=== PATIENT | female | born 1965 | race Caucasian/White ===

== ENCOUNTER 2021-03-10 01:32 | Inpatient (IN) | payer MEDICAID, OTHER ==
[~2021-03-10] VITALS: Ht 162.6 cm; Wt 139.6 kg
[2021-03-10 03:21] LABS: Basophils # (auto) 0 10 ^3/uL (0-0.2); Basophils % (auto) 0.3 % (0.0-2.0); Eosinophils # (auto) 0 10 ^3/uL (0-0.8); Eosinophils % (auto) 0.1 % (0.0-7.0); Hematocrit 40.1 % (36.0-46.0); Hemoglobin 13.2 g/dL (12.2-16.2); Lymphocytes # (auto) 0.6 10 ^3/uL (0.4-5.4); Lymphocytes % (auto) 8.3 % (10.0-50.0); Mean Corpuscular Hemoglobin 26.9 pg (28.0-32.0); Mean Corpuscular Volume 81.5 fL (80.0-100.0); Monocytes # (auto) 0.5 10 ^3/uL (0-1.3); Monocytes % (auto) 6.8 % (0.0-12.0); Neutrophils % (auto) 84.5 % (37.0-80.0); Nucleated Red Blood Cells % 0.1 %; Red Blood Cells 4.92 10^6/uL (4.0-5.20); Red Cell Distribution Width 15.2 % (11.8-14.3); White Blood Cell 7.1 10^3/uL (4.4-10.8)
[2021-03-10 03:39] LABS: Alanine Aminotransferase 44 U/L (13-56); Albumin 2.4 g/dL (3.4-5.0); Anion Gap 10 (5-15); Aspartate Aminotransferase 43 U/L (15-37); BUN/Creatinine Ratio 11.9; Blood Urea Nitrogen 8 mg/dL (7-18); Calcium 8.3 mg/dL (8.5-10.1); Carbon Dioxide 25 mmol/L (21-32); Chloride 99 mmol/L (98-107); GFR African American 118 mL/min; GFR Non-African American 98 mL/min; Glucose 107 mg/dL (74-106); Potassium 3.3 mmol/L (3.5-5.1); Sodium 134 mmol/L (136-145)
[2021-03-10 03:46] LABS: Alkaline Phosphatase 142 U/L (45-117); Bilirubin, Total 1.1 mg/dL (0.2-1.0); Total Protein 7.6 g/dL (6.4-8.2)
[2021-03-10 04:14] LABS: INR 1.16 (0.9-1.15); Partial Thromboplastin Time 30.2 sec (23.6-33.0)
[2021-03-10] MEDS ORDERED: ACETAMINOPHEN 500 MG TAB PO ONE (08:00)
[2021-03-10 09:40] LABS: Urine Amorphous Crystal FEW /hpf (None Seen); Urine Bacteria NONE SEEN /hpf (None Seen); Urine Blood Negative /uL (Negative); Urine Mucus FEW (None Seen); Urine Specific Gravity 1.034 (1.001-1.035); Urine WBC 5 /hpf (0 - 5)
[2021-03-10] MEDS ORDERED: MORPHINE SULFATE INJECTION 2 MG/ML SYRG IV PRN (10:45)
[2021-03-10] MEDS ORDERED: DexAMETHasone SOD PHOS 10MG/1ML VIAL INJ IV ONE (10:45)
[2021-03-10] MEDS ORDERED: NITROGLYCERIN 0.4 MG SL TAB SL PRN (10:45)
[2021-03-10] MEDS ORDERED: cefTRIAXone 1GM/50ML D5W 50 ML IV ONE (10:45)
[2021-03-10] MEDS ORDERED: CHOLECALCIFEROL (VITD3) 2,000 UNIT CAP/TAB PO ONE (10:45)
[2021-03-10] MEDS ORDERED: AZITHROMYCIN 500MG/ 250ML 250 ML IV ONE (10:45)
[2021-03-10] MEDS ORDERED: ASCORBIC ACID 500 MG TAB PO ONE (10:45)
[2021-03-10] MEDS ORDERED: ZINC SULFATE 220mg CAP or TAB PO ONE (10:45)
[2021-03-10] MEDS ORDERED: REMDESIVIR PER PHARMACY 0 ML IV SCH (11:00)
[2021-03-10] MEDS ORDERED: diphenhdrAMINE HCL 50 MG/1 ML VL IV PRN (11:00)
[2021-03-10] MEDS ORDERED: LACTULOSE 20Gm/30ML SOLN PO PRN (11:15)
[2021-03-10] MEDS ORDERED: POTASSIUM EFFERVESENT TAB 25 MEQ PO ONE (11:15)
[2021-03-10] MEDS ORDERED: DEXTROSE (50%) 50ML SYRG IV PRN (11:15)
[2021-03-10] MEDS: ACCU-CHEK COMFORT CURVE STRIP VI SCH ×3 (11:48→22:00)
[2021-03-10] MEDS ORDERED: REMDESIVIR 200 MG in NS 210ml LOADING DOSE ADULT IV ONE (15:00)
[2021-03-10 18:17] VITALS: BP 119/74
[2021-03-10 18:32] VITALS: BP 113/70
[2021-03-10] MEDS: ENOXAPARIN SOD 40 MG/0.4 ML SYRINGE SC SCH (21:59)
[2021-03-10] MEDS: FLORASTOR (S. BOULARDII) 250 MG CAP PO SCH (22:00)
[2021-03-10] MEDS: FAMOTIDINE 20 MG TAB PO SCH (22:00)
[2021-03-10] MEDS: ALBUTEROL SULF HFA 90MCG INH 200DOSE IN PRN (22:27)
[2021-03-10] MEDS: BUDESONIDE (INHALATION) 180 MCG IH IN SCH (22:27)
[2021-03-11 06:41] LABS: Basophils # (auto) 0 10 ^3/uL (0-0.2); Basophils % (auto) 0.1 % (0.0-2.0); Eosinophils # (auto) 0 10 ^3/uL (0-0.8); Hematocrit 35.2 % (36.0-46.0); Hemoglobin 11.9 g/dL (12.2-16.2); Lymphocytes # (auto) 0.5 10 ^3/uL (0.4-5.4); Lymphocytes % (auto) 6.7 % (10.0-50.0); Mean Corpuscular Hemoglobin 27.6 pg (28.0-32.0); Mean Corpuscular Hgb Conc. 33.8 g/dL (32.0-36.0); Mean Corpuscular Volume 81.8 fL (80.0-100.0); Monocytes # (auto) 0.4 10 ^3/uL (0-1.3); Monocytes % (auto) 5.1 % (0.0-12.0); Neutrophils # (auto) 6.9 10 ^3/uL (1.6-8.6); Neutrophils % (auto) 88.1 % (37.0-80.0); Nucleated Red Blood Cells % 0.1 %; Red Cell Distribution Width 14.8 % (11.8-14.3); White Blood Cell 7.9 10^3/uL (4.4-10.8)
[2021-03-11] MEDS: ACCU-CHEK COMFORT CURVE STRIP VI SCH ×4 (06:48→23:04)
[2021-03-11 07:05] LABS: Potassium 4.1 mmol/L (3.5-5.1)
[2021-03-11 07:12] LABS: Albumin 2.3 g/dL (3.4-5.0); BUN/Creatinine Ratio 18.6; Calcium 8.9 mg/dL (8.5-10.1)
[2021-03-11 07:17] LABS: Bilirubin, Total 0.9 mg/dL (0.2-1.0); Total Protein 7.6 g/dL (6.4-8.2)
[2021-03-11] MEDS: BUDESONIDE (INHALATION) 180 MCG IH IN SCH ×2 (07:35→18:35)
[2021-03-11] MEDS: ALBUTEROL SULF HFA 90MCG INH 200DOSE IN PRN ×2 (07:35→18:47)
[2021-03-11] MEDS: cefTRIAXone 1GM/50ML D5W 50 ML IV SCH (10:48)
[2021-03-11] MEDS: DexAMETHasone SOD PHOS 10MG/1ML VIAL INJ IV SCH (10:48)
[2021-03-11] MEDS: FAMOTIDINE 20 MG TAB PO SCH ×2 (10:49→23:04)
[2021-03-11] MEDS: FLORASTOR (S. BOULARDII) 250 MG CAP PO SCH ×2 (10:49→23:04)
[2021-03-11] MEDS: CHOLECALCIFEROL (VITD3) 2,000 UNIT CAP/TAB PO SCH (10:49)
[2021-03-11] MEDS: ASCORBIC ACID 1,000 MG TAB PO SCH (10:49)
[2021-03-11] MEDS: ZINC SULFATE 220mg CAP or TAB PO SCH (10:49)
[2021-03-11] MEDS: IVERMECTIN 3 MG TAB PO SCH (10:49)
[2021-03-11] MEDS: ENOXAPARIN SOD 40 MG/0.4 ML SYRINGE SC SCH ×2 (10:50→23:04)
[2021-03-11] MEDS ORDERED: guaiFENesin-DM 100/10mg/5ml SYR PO PRN (11:15)
[2021-03-11] MEDS: AZITHROMYCIN 500MG/ 250ML 250 ML IV SCH (11:43)
[2021-03-11] MEDS: REMDESIVIR 100mg 100 MG in SODIUM CHL 0.9% 230 ML IV SCH (17:30)
[2021-03-11 23:00] VITALS: BP 109/66
[2021-03-12] MEDS ORDERED: ALBUAER3 IN (00:41)
[2021-03-12] MEDS ORDERED: ALBU0.084 NEB (00:41)
[2021-03-12 05:58] VITALS: BP 122/74
[2021-03-12] MEDS: ACCU-CHEK COMFORT CURVE STRIP VI SCH ×4 (06:00→22:31)
[2021-03-12 07:02] LABS: Albumin 2.2 g/dL (3.4-5.0); BUN/Creatinine Ratio 27.6; Calcium 8.9 mg/dL (8.5-10.1); Potassium 3.8 mmol/L (3.5-5.1)
[2021-03-12] MEDS: ALBUTEROL SULF HFA 90MCG INH 200DOSE IN PRN ×2 (07:15→21:37)
[2021-03-12] MEDS: BUDESONIDE (INHALATION) 180 MCG IH IN SCH ×2 (07:15→21:37)
[2021-03-12 07:20] LABS: Bilirubin, Total 0.4 mg/dL (0.2-1.0); Total Protein 7.3 g/dL (6.4-8.2)
[2021-03-12 09:00] VITALS: BP 99/64
[2021-03-12] MEDS: DexAMETHasone SOD PHOS 10MG/1ML VIAL INJ IV SCH (09:00)
[2021-03-12] MEDS: cefTRIAXone 1GM/50ML D5W 50 ML IV SCH (09:00)
[2021-03-12] MEDS: ZINC SULFATE 220mg CAP or TAB PO SCH (09:01)
[2021-03-12] MEDS: FLORASTOR (S. BOULARDII) 250 MG CAP PO SCH ×2 (09:01→22:31)
[2021-03-12] MEDS: IVERMECTIN 3 MG TAB PO SCH (09:02)
[2021-03-12] MEDS: CHOLECALCIFEROL (VITD3) 2,000 UNIT CAP/TAB PO SCH (09:02)
[2021-03-12] MEDS: ASCORBIC ACID 1,000 MG TAB PO SCH (09:02)
[2021-03-12] MEDS: FAMOTIDINE 20 MG TAB PO SCH ×2 (09:02→22:31)
[2021-03-12] MEDS: ENOXAPARIN SOD 40 MG/0.4 ML SYRINGE SC SCH (10:00)
[2021-03-12] MEDS: AZITHROMYCIN 500MG/ 250ML 250 ML IV SCH (11:24)
[2021-03-12 13:00] VITALS: BP 108/67
[2021-03-12] MEDS: REMDESIVIR 100mg 100 MG in SODIUM CHL 0.9% 230 ML IV SCH (15:44)
[2021-03-12] MEDS ORDERED: ENOXAPARIN SOD 150 MG/1 ML SYRINGE SC ONE (16:00)
[2021-03-12] MEDS ORDERED: ENOXAPARIN SOD 100 MG/1 ML SYRINGE SC ONE (16:00)
[2021-03-12 17:00] VITALS: BP 97/61
[2021-03-12 22:00] VITALS: BP 106/66
[2021-03-13 05:13] VITALS: BP 137/72
[2021-03-13 06:43] LABS: Albumin 2.1 g/dL (3.4-5.0); Potassium 4.1 mmol/L (3.5-5.1)
[2021-03-13 06:47] LABS: Bilirubin, Total 0.5 mg/dL (0.2-1.0); Calcium 8.9 mg/dL (8.5-10.1); Total Protein 6.8 g/dL (6.4-8.2)
[2021-03-13] MEDS: ACCU-CHEK COMFORT CURVE STRIP VI SCH ×4 (06:57→21:09)
[2021-03-13] MEDS: ALBUTEROL SULF HFA 90MCG INH 200DOSE IN PRN ×2 (07:04→22:08)
[2021-03-13] MEDS: BUDESONIDE (INHALATION) 180 MCG IH IN SCH ×2 (07:04→22:07)
[2021-03-13] MEDS: cefTRIAXone 1GM/50ML D5W 50 ML IV SCH (13:07)
[2021-03-13] MEDS: DexAMETHasone SOD PHOS 10MG/1ML VIAL INJ IV SCH (13:07)
[2021-03-13] MEDS: FAMOTIDINE 20 MG TAB PO SCH ×2 (13:08→21:01)
[2021-03-13] MEDS: IVERMECTIN 3 MG TAB PO SCH (13:08)
[2021-03-13] MEDS: ASCORBIC ACID 1,000 MG TAB PO SCH (13:08)
[2021-03-13] MEDS: FLORASTOR (S. BOULARDII) 250 MG CAP PO SCH ×2 (13:08→21:01)
[2021-03-13] MEDS: CHOLECALCIFEROL (VITD3) 2,000 UNIT CAP/TAB PO SCH (13:08)
[2021-03-13] MEDS: AZITHROMYCIN 500MG/ 250ML 250 ML IV SCH (13:08)
[2021-03-13] MEDS: ZINC SULFATE 220mg CAP or TAB PO SCH (13:08)
[2021-03-13] MEDS: ENOXAPARIN SOD 30 MG/0.3 ML SYRINGE SC SCH ×2 (13:09→21:02)
[2021-03-13] MEDS: ENOXAPARIN SOD 100 MG/1 ML SYRINGE SC SCH ×2 (13:09→21:01)
[2021-03-13] MEDS: REMDESIVIR 100mg 100 MG in SODIUM CHL 0.9% 230 ML IV SCH (15:07)
[2021-03-13 17:00] VITALS: BP 98/60
[2021-03-13 22:00] VITALS: BP 127/71
[2021-03-14 05:00] VITALS: BP 104/66
[2021-03-14] MEDS: ACCU-CHEK COMFORT CURVE STRIP VI SCH ×3 (07:02→17:00)
[2021-03-14 07:41] LABS: Calcium 8.7 mg/dL (8.5-10.1)
[2021-03-14 07:48] LABS: Albumin 2.2 g/dL (3.4-5.0); BUN/Creatinine Ratio 26.3; Bilirubin, Total 0.7 mg/dL (0.2-1.0); Total Protein 7.2 g/dL (6.4-8.2)
[2021-03-14 08:00] VITALS: BP 102/53
[2021-03-14] MEDS: cefTRIAXone 1GM/50ML D5W 50 ML IV SCH (09:10)
[2021-03-14] MEDS: BUDESONIDE (INHALATION) 180 MCG IH IN SCH ×2 (09:44→22:46)
[2021-03-14] MEDS: ALBUTEROL SULF HFA 90MCG INH 200DOSE IN PRN ×2 (09:44→23:51)
[2021-03-14] MEDS: DexAMETHasone SOD PHOS 10MG/1ML VIAL INJ IV SCH (10:11)
[2021-03-14] MEDS: ENOXAPARIN SOD 100 MG/1 ML SYRINGE SC SCH ×2 (10:12→22:05)
[2021-03-14] MEDS: FAMOTIDINE 20 MG TAB PO SCH ×2 (10:12→22:05)
[2021-03-14] MEDS: IVERMECTIN 3 MG TAB PO SCH (10:12)
[2021-03-14] MEDS: AZITHROMYCIN 500MG/ 250ML 250 ML IV SCH (10:12)
[2021-03-14] MEDS: FLORASTOR (S. BOULARDII) 250 MG CAP PO SCH ×2 (10:12→22:05)
[2021-03-14] MEDS: ZINC SULFATE 220mg CAP or TAB PO SCH (10:12)
[2021-03-14] MEDS: CHOLECALCIFEROL (VITD3) 2,000 UNIT CAP/TAB PO SCH (10:12)
[2021-03-14] MEDS: ASCORBIC ACID 1,000 MG TAB PO SCH (10:12)
[2021-03-14] MEDS: ENOXAPARIN SOD 30 MG/0.3 ML SYRINGE SC SCH ×2 (10:13→22:05)
[2021-03-14 13:00] VITALS: BP 95/60
[2021-03-14] MEDS ORDERED: PANTOPRAZOLE 40 MG/10 ML VIAL INJ IV ONE (13:30)
[2021-03-14] MEDS: REMDESIVIR 100mg 100 MG in SODIUM CHL 0.9% 230 ML IV SCH (15:31)
[2021-03-14 17:00] VITALS: BP 111/59
[2021-03-14 22:00] VITALS: BP 94/61
[2021-03-15] VITALS (7 sets, daily range): BP systolic 85–104; BP diastolic 50–59
[2021-03-15] MEDS: ACETAMINOPHEN 500 MG TAB PO PRN ×3 (02:26→22:36)
[2021-03-15] MEDS: BUDESONIDE (INHALATION) 180 MCG IH IN SCH ×2 (06:56→22:27)
[2021-03-15] MEDS: ALBUTEROL SULF HFA 90MCG INH 200DOSE IN PRN (06:57)
[2021-03-15 07:53] LABS: Basophils # (auto) 0.1 10 ^3/uL (0-0.2); Basophils % (auto) 0.4 % (0.0-2.0); Lymphocytes # (auto) 1.4 10 ^3/uL (0.4-5.4); Monocytes # (auto) 0.9 10 ^3/uL (0-1.3); Nucleated Red Blood Cells % 0.1 %; White Blood Cell 13.1 10^3/uL (4.4-10.8)
[2021-03-15 07:55] LABS: Eosinophils # (auto) 0.2 10 ^3/uL (0-0.8); Eosinophils % (auto) 1.8 % (0.0-7.0); Hematocrit 37.1 % (36.0-46.0); Hemoglobin 12.3 g/dL (12.2-16.2); Lymphocytes % (auto) 11.1 % (10.0-50.0); Mean Corpuscular Hemoglobin 27.7 pg (28.0-32.0); Monocytes % (auto) 6.5 % (0.0-12.0); Neutrophils # (auto) 10.5 10 ^3/uL (1.6-8.6); Neutrophils % (auto) 80.2 % (37.0-80.0); Red Blood Cells 4.42 10^6/uL (4.0-5.20); Red Cell Distribution Width 15.4 % (11.8-14.3)
[2021-03-15] MEDS: cefTRIAXone 1GM/50ML D5W 50 ML IV SCH (08:55)
[2021-03-15] MEDS ORDERED: PANTOPRAZOLE 40 MG/10 ML VIAL INJ IV SCH (10:00)
[2021-03-15 10:01] LABS: Calcium 8.8 mg/dL (8.5-10.1); Potassium 3.8 mmol/L (3.5-5.1)
[2021-03-15] MEDS: DexAMETHasone SOD PHOS 10MG/1ML VIAL INJ IV SCH (10:08)
[2021-03-15] MEDS: FLORASTOR (S. BOULARDII) 250 MG CAP PO SCH (10:09)
[2021-03-15] MEDS: AZITHROMYCIN 500MG/ 250ML 250 ML IV SCH (10:09)
[2021-03-15] MEDS: ZINC SULFATE 220mg CAP or TAB PO SCH (10:09)
[2021-03-15] MEDS: IVERMECTIN 3 MG TAB PO SCH (10:09)
[2021-03-15] MEDS: ENOXAPARIN SOD 100 MG/1 ML SYRINGE SC SCH ×2 (10:10→22:37)
[2021-03-15] MEDS: ASCORBIC ACID 1,000 MG TAB PO SCH (10:10)
[2021-03-15] MEDS: ENOXAPARIN SOD 30 MG/0.3 ML SYRINGE SC SCH ×2 (10:10→22:36)
[2021-03-15] MEDS: CHOLECALCIFEROL (VITD3) 2,000 UNIT CAP/TAB PO SCH (10:10)
[2021-03-16] VITALS (21 sets, daily range): BP systolic 91–121; BP diastolic 23–90
[2021-03-16 05:53] LABS: BUN/Creatinine Ratio 25.9; Calcium 8.7 mg/dL (8.5-10.1); Potassium 4.7 mmol/L (3.5-5.1)
[2021-03-16 06:23] LABS: Red Cell Distribution Width 15.2 % (11.8-14.3)
[2021-03-16 06:25] LABS: Hematocrit 30.8 % (36.0-46.0); Hemoglobin 9.7 g/dL (12.2-16.2); Mean Corpuscular Hemoglobin 26.3 pg (28.0-32.0); Mean Corpuscular Hgb Conc. 31.5 g/dL (32.0-36.0); Mean Corpuscular Volume 83.4 fL (80.0-100.0)
[2021-03-16] MEDS: BUDESONIDE (INHALATION) 180 MCG IH IN SCH ×2 (06:52→22:00)
[2021-03-16] MEDS: ALBUTEROL SULF HFA 90MCG INH 200DOSE IN PRN ×2 (06:52→22:52)
[2021-03-16 07:43] LABS: White Blood Cell 40.7 10^3/uL (4.4-10.8)
[2021-03-16 07:45] LABS: Basophils % (manual) 0 (0.0-2.0); Blast Cells 0; Eosinophils % (manual) 0 (0-7); Promyelocytes % 0; Reactive Lymphocytes 0
[2021-03-16] MEDS ORDERED: VANCOMYCIN PER PHARMACY 0 MG IV SCH (08:00)
[2021-03-16 09:00] LABS: Albumin 2.3 g/dL (3.4-5.0); Calcium 8.7 mg/dL (8.5-10.1); Potassium 4.7 mmol/L (3.5-5.1)
[2021-03-16 09:05] LABS: BUN/Creatinine Ratio 21.5; Bilirubin, Total 0.6 mg/dL (0.2-1.0); Total Protein 6.8 g/dL (6.4-8.2)
[2021-03-16] MEDS: cefTRIAXone 1GM/50ML D5W 50 ML IV SCH (09:06)
[2021-03-16 09:18] LABS: Lactic Acid w/Reflex 10.1 mmol/L (0.4-2.0)
[2021-03-16] MEDS: ASCORBIC ACID 1,000 MG TAB PO SCH (10:00)
[2021-03-16] MEDS ORDERED: VANCOMYCIN 1GM/250ML 250 ML IV ONE (10:00)
[2021-03-16] MEDS: ZINC SULFATE 220mg CAP or TAB PO SCH (10:00)
[2021-03-16] MEDS: CHOLECALCIFEROL (VITD3) 2,000 UNIT CAP/TAB PO SCH (10:00)
[2021-03-16] MEDS ORDERED: SODIUM CHLORIDE 0.9% 2,000 ML IV ONE (10:15)
[2021-03-16] MEDS ORDERED: SODIUM CHLORIDE 0.9% 3,000 ML IV ONE (11:00)
[2021-03-16] MEDS: PANTOPRAZOLE 40 MG/10 ML VIAL INJ IV SCH ×2 (11:18→22:53)
[2021-03-16 12:11] LABS: Red Blood Cells 2.71 10^6/uL (4.0-5.20)
[2021-03-16 12:15] LABS: Mean Corpuscular Hemoglobin 26.2 pg (28.0-32.0); Mean Corpuscular Hgb Conc. 30.9 g/dL (32.0-36.0); Mean Corpuscular Volume 84.8 fL (80.0-100.0); Red Cell Distribution Width 15.6 % (11.8-14.3)
[2021-03-16] MEDS: ONDANSETRON HCL 4 MG/2 ML VIAL IV PRN ×2 (12:39→18:09)
[2021-03-16 12:47] LABS: Urine Bacteria NONE SEEN /hpf (None Seen); Urine Blood 3+ /uL (Negative); Urine Hyaline Cast MOD /lpf (0 - 2); Urine Mucus FEW (None Seen); Urine Specific Gravity 1.023 (1.001-1.035); Urine WBC 73 /hpf (0 - 5)
[2021-03-16 13:12] LABS: Hemoglobin 7.3 g/dL (12.2-16.2); White Blood Cell 38.6 10^3/uL (4.4-10.8)
[2021-03-16 13:13] LABS: Hematocrit 23.2 % (36.0-46.0)
[2021-03-16 13:14] LABS: Basophils % (manual) 0 (0.0-2.0); Blast Cells 0; Eosinophils % (manual) 0 (0-7); Promyelocytes % 0; Reactive Lymphocytes 0
[2021-03-16] MEDS ORDERED: FUROSEMIDE 40 MG/4 ML VIAL IV ONE (13:45)
[2021-03-16 14:25] LABS: Band Neutrophils % (manual) 5; Lymphocytes % (manual) 4 (10.0-50.0); Metamyelocytes % 3; Monocytes % (manual) 2 (0-12); Myelocytes % 2
[2021-03-16 14:28] LABS: Band Neutrophils % (manual) 7; Lymphocytes % (manual) 5 (10.0-50.0); Metamyelocytes % 1; Monocytes % (manual) 1 (0-12); Myelocytes % 1
[2021-03-16 15:02] LABS: % Iron Saturation 26.5 % (15-50)
[2021-03-16] MEDS: MEROPENEM 1GM IVPB 100 ML IV SCH ×2 (16:02→21:52)
[2021-03-17] VITALS (19 sets, daily range): BP systolic 90–148; BP diastolic 55–94
[2021-03-17] MEDS: ACETAMINOPHEN 500 MG TAB PO PRN (05:25)
[2021-03-17 06:51] LABS: Hematocrit 28.9 % (36.0-46.0); Hemoglobin 9.6 g/dL (12.2-16.2); Mean Corpuscular Hgb Conc. 33.4 g/dL (32.0-36.0); Red Blood Cells 3.44 10^6/uL (4.0-5.20); Red Cell Distribution Width 17.9 % (11.8-14.3)
[2021-03-17 07:00] LABS: Lactic Acid w/Reflex 3.3 mmol/L (0.4-2.0)
[2021-03-17 07:24] LABS: Albumin 2.3 g/dL (3.4-5.0); BUN/Creatinine Ratio 14.1; Bilirubin, Total 0.7 mg/dL (0.2-1.0); Calcium 7.9 mg/dL (8.5-10.1); Total Protein 6.3 g/dL (6.4-8.2)
[2021-03-17 07:37] LABS: White Blood Cell 41.5 10^3/uL (4.4-10.8)
[2021-03-17 07:38] LABS: Basophils % (manual) 0 (0.0-2.0); Blast Cells 0; Eosinophils % (manual) 0 (0-7); Promyelocytes % 0; Reactive Lymphocytes 0
[2021-03-17] MEDS ORDERED: SODIUM BICARBONATE 50ML VIAL 150 ML in D5W 5% 1,000 ML IV SCH (08:15)
[2021-03-17] MEDS ORDERED: ALBUTEROL SULF 2.5 MG/0.5ML(0.5%) NEB SOLN NEB ONE (08:15)
[2021-03-17] MEDS ORDERED: SODIUM BICARBONATE 8.4 % INJ 50ML VIAL IV ONE (08:15)
[2021-03-17] MEDS ORDERED: SODIUM BICARBONATE 8.4% INJ 50ML SYRINGE IV ONE (08:15)
[2021-03-17] MEDS ORDERED: BUMETANIDE 2.5mg/10ml (0.25 mg/ml) INJ IV ONE ×2 (08:15→21:15)
[2021-03-17] MEDS ORDERED: CALCIUM GLUC 1,000mg/50ml-NS 50 ML IV ONE (08:15)
[2021-03-17] MEDS ORDERED: SODIUM ZIRCONIUM CYCL 10 GM PAK PO ONE (08:15)
[2021-03-17 09:18] LABS: Band Neutrophils % (manual) 6; Lymphocytes % (manual) 11 (10.0-50.0); Metamyelocytes % 1; Monocytes % (manual) 6 (0-12); Myelocytes % 2
[2021-03-17] MEDS: PANTOPRAZOLE 40 MG/10 ML VIAL INJ IV SCH ×2 (09:47→22:27)
[2021-03-17] MEDS: CHOLECALCIFEROL (VITD3) 2,000 UNIT CAP/TAB PO SCH (09:48)
[2021-03-17] MEDS: LINEZOLID 600MG/300ML 300 ML IV SCH (09:48)
[2021-03-17] MEDS: ASCORBIC ACID 1,000 MG TAB PO SCH (09:48)
[2021-03-17] MEDS: ZINC SULFATE 220mg CAP or TAB PO SCH (09:48)
[2021-03-17] MEDS: NOREPINEPHRINE 8 MG/250ML KIT 250 ML IV SCH ×2 (10:30→18:18)
[2021-03-17] MEDS: BUDESONIDE (INHALATION) 180 MCG IH IN SCH ×2 (11:31→22:11)
[2021-03-17] MEDS ORDERED: IOTHALAMATE MEGLUMINE INJ 250ML BOT UR ONE (12:21)
[2021-03-17 12:32] LABS: Hematocrit 25.2 % (36.0-46.0); Hemoglobin 8.4 g/dL (12.2-16.2)
[2021-03-17] MEDS: SODIUM ZIRCONIUM CYCL 10 GM PAK PO SCH ×2 (14:00→22:27)
[2021-03-17 15:44] LABS: INR 1.19 (0.9-1.15); Partial Thromboplastin Time 23.3 sec (23.6-33.0)
[2021-03-17] MEDS: MEROPENEM 1GM IVPB 100 ML IV SCH (18:14)
[2021-03-17 18:42] LABS: Hemoglobin 7.4 g/dL (12.2-16.2)
[2021-03-17 18:44] LABS: Hematocrit 21.5 % (36.0-46.0)
[2021-03-17 20:31] LABS: Albumin 1.9 g/dL (3.4-5.0); Potassium 4.8 mmol/L (3.5-5.1)
[2021-03-17 20:45] LABS: BUN/Creatinine Ratio 11.6; Bilirubin, Total 0.6 mg/dL (0.2-1.0); Total Protein 5.5 g/dL (6.4-8.2)
[2021-03-17] MEDS ORDERED: InsuLIN REG 1unit/0.01ml Soln (100units/ml) IV ONE (21:15)
[2021-03-17] MEDS: ALBUTEROL SULF HFA 90MCG INH 200DOSE IN PRN (22:11)
[2021-03-17] MEDS: SODIUM BICARBONATE 50ML VIAL 150 ML in D5W 5% 1,000 ML IV SCH (22:22)
[2021-03-18] VITALS (64 sets, daily range): BP systolic 83–126; BP diastolic 36–81
[2021-03-18] MEDS: LINEZOLID 600MG/300ML 300 ML IV SCH ×3 (01:43→20:48)
[2021-03-18] MEDS: MEROPENEM 1GM IVPB 100 ML IV SCH ×2 (03:26→15:11)
[2021-03-18] MEDS: SODIUM BICARBONATE 50ML VIAL 150 ML in D5W 5% 1,000 ML IV SCH (03:28)
[2021-03-18 04:01] LABS: Hematocrit 27.8 % (36.0-46.0); Hemoglobin 9.2 g/dL (12.2-16.2)
[2021-03-18 04:09] LABS: % Iron Saturation 15.3 % (15-50)
[2021-03-18 05:14] LABS: Albumin 2.1 g/dL (3.4-5.0); Calcium 7.5 mg/dL (8.5-10.1); Potassium 5.3 mmol/L (3.5-5.1)
[2021-03-18 05:18] LABS: Bilirubin, Total 0.8 mg/dL (0.2-1.0); Total Protein 6.3 g/dL (6.4-8.2)
[2021-03-18] MEDS: SODIUM ZIRCONIUM CYCL 10 GM PAK PO SCH ×3 (05:41→20:49)
[2021-03-18] MEDS: ALBUTEROL SULF HFA 90MCG INH 200DOSE IN PRN ×2 (06:32→19:53)
[2021-03-18] MEDS: BUDESONIDE (INHALATION) 180 MCG IH IN SCH ×2 (06:33→19:53)
[2021-03-18] MEDS ORDERED: HEPARIN 1,000 UNITS/ml 1ML VIAL ONE (07:13)
[2021-03-18] MEDS ORDERED: SODIUM CHL 0.9% 1000 ML BAG XX ONE (07:15)
[2021-03-18] MEDS ORDERED: MORPHINE SULFATE INJECTION 2 MG/ML SYRG IV PRN (08:15)
[2021-03-18 09:02] LABS: Hematocrit 26.3 % (36.0-46.0); Mean Corpuscular Hemoglobin 29.8 pg (28.0-32.0); Mean Corpuscular Hgb Conc. 34.3 g/dL (32.0-36.0); Mean Corpuscular Volume 86.8 fL (80.0-100.0); Red Blood Cells 3.03 10^6/uL (4.0-5.20); Red Cell Distribution Width 17.9 % (11.8-14.3)
[2021-03-18 09:05] LABS: White Blood Cell 35.8 10^3/uL (4.4-10.8)
[2021-03-18 09:06] LABS: Band Neutrophils % (manual) 0; Basophils % (manual) 0 (0.0-2.0); Blast Cells 0; Metamyelocytes % 0; Myelocytes % 0; Promyelocytes % 0; Reactive Lymphocytes 0
[2021-03-18] MEDS: NOREPINEPHRINE 8 MG/250ML KIT 250 ML IV SCH (09:06)
[2021-03-18 09:19] LABS: Eosinophils % (manual) 4 (0-7); Lymphocytes % (manual) 27 (10.0-50.0); Monocytes % (manual) 5 (0-12); Phosphorus 6.5 mg/dL (2.5-4.90)
[2021-03-18] MEDS ORDERED: CALCIUM GLUC 1,000mg/50ml-NS 50 ML IV ONE (09:45)
[2021-03-18] MEDS ORDERED: ALBUTEROL SULF 2.5 MG/0.5ML(0.5%) NEB SOLN NEB ONE (09:45)
[2021-03-18] MEDS: ASCORBIC ACID 1,000 MG TAB PO SCH (10:00)
[2021-03-18] MEDS: PANTOPRAZOLE 40 MG/10 ML VIAL INJ IV SCH ×2 (10:00→20:47)
[2021-03-18] MEDS: CHOLECALCIFEROL (VITD3) 2,000 UNIT CAP/TAB PO SCH (10:00)
[2021-03-18] MEDS: ZINC SULFATE 220mg CAP or TAB PO SCH (10:00)
[2021-03-18 12:31] LABS: Hematocrit 27.6 % (36.0-46.0); Hemoglobin 8.9 g/dL (12.2-16.2)
[2021-03-18] MEDS ORDERED: LIDOCAINE 1% (LOCAL ANESTH.) PF 5ml SDV ID ONE (14:15)
[2021-03-18] MEDS ORDERED: IOHEXOL 350 MG/ML 100ML IJ ONE (14:15)
[2021-03-18 19:08] LABS: Hepatitis A Ab IgM Negative
[2021-03-18 19:10] LABS: Hepatitis B Core IgM Negative
[2021-03-18 19:13] LABS: Hepatitis B Surface Antigen Negative (Negative)
[2021-03-18 19:15] LABS: Hepatitis C Antibody Negative (Negative)
[2021-03-18] MEDS: SODIUM CHLOR 0.9% PF (SALINE LOCK) 10ML VIAL/SYR IV SCH (20:47)
[2021-03-18] MEDS ORDERED: EPOETIN ALFA-EPBX 4,000 UNIT/ML VIAL SC ONE (21:00)
[2021-03-19] VITALS (79 sets, daily range): BP systolic 91–137; BP diastolic 35–68
[2021-03-19 02:33] LABS: Hematocrit 20.2 % (36.0-46.0)
[2021-03-19 02:47] LABS: Hemoglobin 7.1 g/dL (12.2-16.2)
[2021-03-19] MEDS: MEROPENEM 1GM IVPB 100 ML IV SCH ×2 (02:53→15:00)
[2021-03-19 05:00] LABS: Hemoglobin 7.2 g/dL (12.2-16.2); Mean Corpuscular Hgb Conc. 34.7 g/dL (32.0-36.0); Red Cell Distribution Width 18.3 % (11.8-14.3)
[2021-03-19 05:03] LABS: Hematocrit 20.7 % (36.0-46.0); Mean Corpuscular Hemoglobin 29.8 pg (28.0-32.0); Mean Corpuscular Volume 85.9 fL (80.0-100.0); White Blood Cell 26.7 10^3/uL (4.4-10.8)
[2021-03-19 05:15] LABS: Calcium 7.3 mg/dL (8.5-10.1); Potassium 5.2 mmol/L (3.5-5.1)
[2021-03-19 05:18] LABS: BUN/Creatinine Ratio 9.6
[2021-03-19 05:24] LABS: Basophils % (manual) 0 (0.0-2.0); Blast Cells 0; Eosinophils % (manual) 0 (0-7); Metamyelocytes % 0; Myelocytes % 0; Promyelocytes % 0; Reactive Lymphocytes 0
[2021-03-19] MEDS: BUDESONIDE (INHALATION) 180 MCG IH IN SCH ×2 (05:53→22:20)
[2021-03-19] MEDS: ALBUTEROL SULF HFA 90MCG INH 200DOSE IN PRN ×2 (05:53→23:08)
[2021-03-19] MEDS: SODIUM ZIRCONIUM CYCL 10 GM PAK PO SCH (06:00)
[2021-03-19 07:12] LABS: Band Neutrophils % (manual) 13; Lymphocytes % (manual) 4 (10.0-50.0); Monocytes % (manual) 9 (0-12)
[2021-03-19 07:35] LABS: Hematocrit 21.8 % (36.0-46.0); Hemoglobin 7.2 g/dL (12.2-16.2); Mean Corpuscular Hemoglobin 28.3 pg (28.0-32.0); Mean Corpuscular Hgb Conc. 32.9 g/dL (32.0-36.0); Mean Corpuscular Volume 86.1 fL (80.0-100.0); Red Blood Cells 2.54 10^6/uL (4.0-5.20); White Blood Cell 23.6 10^3/uL (4.4-10.8)
[2021-03-19 07:38] LABS: Basophils % (manual) 0 (0.0-2.0); Blast Cells 0; Eosinophils % (manual) 0 (0-7); Promyelocytes % 0; Reactive Lymphocytes 0
[2021-03-19 07:57] LABS: Calcium 7.2 mg/dL (8.5-10.1); Potassium 5.1 mmol/L (3.5-5.1)
[2021-03-19] MEDS ORDERED: SODIUM BICARBONATE 8.4% INJ 50ML SYRINGE IV ONE (08:00)
[2021-03-19] MEDS ORDERED: ALBUTEROL SULF 2.5 MG/0.5ML(0.5%) NEB SOLN NEB ONE (08:00)
[2021-03-19] MEDS ORDERED: BUMETANIDE 2.5mg/10ml (0.25 mg/ml) INJ IV ONE (08:00)
[2021-03-19] MEDS ORDERED: SODIUM ZIRCONIUM CYCL 10 GM PAK PO ONE (08:00)
[2021-03-19] MEDS ORDERED: CALCIUM GLUC 1,000mg/50ml-NS 50 ML IV ONE (08:00)
[2021-03-19 08:03] LABS: Albumin 1.8 g/dL (3.4-5.0); BUN/Creatinine Ratio 9.2
[2021-03-19] MEDS ORDERED: ALBUTEROL SULF 2.5 MG/0.5ML(0.5%) NEB SOLN ONE (08:35)
[2021-03-19 08:55] LABS: Band Neutrophils % (manual) 7; Lymphocytes % (manual) 6 (10.0-50.0); Metamyelocytes % 1; Monocytes % (manual) 4 (0-12); Myelocytes % 1
[2021-03-19] MEDS: SODIUM CHLOR 0.9% PF (SALINE LOCK) 10ML VIAL/SYR IV SCH ×2 (10:00→21:40)
[2021-03-19] MEDS: PANTOPRAZOLE 40 MG/10 ML VIAL INJ IV SCH ×2 (10:53→21:39)
[2021-03-19] MEDS: LINEZOLID 600MG/300ML 300 ML IV SCH ×2 (10:54→21:41)
[2021-03-19] MEDS: ZINC SULFATE 220mg CAP or TAB PO SCH (10:54)
[2021-03-19] MEDS: ASCORBIC ACID 1,000 MG TAB PO SCH (10:54)
[2021-03-19] MEDS: CHOLECALCIFEROL (VITD3) 2,000 UNIT CAP/TAB PO SCH (10:55)
[2021-03-19] MEDS ORDERED: ALBUMIN 25% 50 ML IV ONE (11:17)
[2021-03-19] MEDS ORDERED: SODIUM ZIRCONIUM CYCL 10 GM PAK PO SCH (14:00)
[2021-03-19] MEDS ORDERED: HEPARIN SODIUM (PORCINE) 5000 UNITS/ML 1ML VIAL ONE (14:02)
[2021-03-19] MEDS: NOREPINEPHRINE 8 MG/250ML KIT 250 ML IV SCH (14:27)
[2021-03-19 14:35] LABS: Hematocrit 19.6 % (36.0-46.0)
[2021-03-19 16:00] LABS: Hemoglobin 6.7 g/dL (12.2-16.2)
[2021-03-19] MEDS ORDERED: CATHFLO ACTIVASE (ALTEPLASE) 2 MG VIAL IV ONE (16:00)
[2021-03-19] MEDS ORDERED: LORazepam 2MG/ML-1ML VIAL IV PRN (16:00)
[2021-03-19 19:21] LABS: Hematocrit 19.7 % (36.0-46.0); Hemoglobin 6.6 g/dL (12.2-16.2)
[2021-03-20] VITALS (72 sets, daily range): BP systolic 88–130; BP diastolic 47–71
[2021-03-20] MEDS: MEROPENEM 1GM IVPB 100 ML IV SCH ×2 (04:11→15:00)
[2021-03-20 04:32] LABS: Hemoglobin 8.1 g/dL (12.2-16.2)
[2021-03-20 04:37] LABS: Hematocrit 23.3 % (36.0-46.0); Mean Corpuscular Hemoglobin 30.1 pg (28.0-32.0); Mean Corpuscular Hgb Conc. 34.6 g/dL (32.0-36.0); Mean Corpuscular Volume 86.9 fL (80.0-100.0); Red Blood Cells 2.68 10^6/uL (4.0-5.20); Red Cell Distribution Width 17.4 % (11.8-14.3); White Blood Cell 17.3 10^3/uL (4.4-10.8)
[2021-03-20 04:49] LABS: Basophils % (manual) 0 (0.0-2.0); Blast Cells 0; Eosinophils % (manual) 0 (0-7); Metamyelocytes % 0; Myelocytes % 0; Promyelocytes % 0; Reactive Lymphocytes 0
[2021-03-20 04:53] LABS: Potassium 5.1 mmol/L (3.5-5.1)
[2021-03-20 04:58] LABS: BUN/Creatinine Ratio 8.9; Calcium 7.3 mg/dL (8.5-10.1)
[2021-03-20 06:14] LABS: Band Neutrophils % (manual) 9; Lymphocytes % (manual) 10 (10.0-50.0); Monocytes % (manual) 8 (0-12)
[2021-03-20] MEDS: ALBUTEROL SULF HFA 90MCG INH 200DOSE IN PRN (06:27)
[2021-03-20] MEDS: BUDESONIDE (INHALATION) 180 MCG IH IN SCH ×2 (06:27→22:00)
[2021-03-20] MEDS: PANTOPRAZOLE 40 MG/10 ML VIAL INJ IV SCH (10:34)
[2021-03-20] MEDS: LINEZOLID 600MG/300ML 300 ML IV SCH ×2 (10:35→21:36)
[2021-03-20] MEDS: SODIUM CHLOR 0.9% PF (SALINE LOCK) 10ML VIAL/SYR IV SCH ×2 (10:35→21:36)
[2021-03-20] MEDS: CHOLECALCIFEROL (VITD3) 2,000 UNIT CAP/TAB PO SCH (10:36)
[2021-03-20] MEDS: ASCORBIC ACID 1,000 MG TAB PO SCH (10:36)
[2021-03-20] MEDS: ZINC SULFATE 220mg CAP or TAB PO SCH (10:36)
[2021-03-20] MEDS ORDERED: fentaNYL CITRATE 100 MCG/2 ML VL ONE (11:24)
[2021-03-20] MEDS ORDERED: MIDAZOLAM HCL 2MG/2ML 2ml VIAL (1mg/ml) ONE (11:24)
[2021-03-20] MEDS ORDERED: LIDOCAINE 2%HCL (LOCAL ANESTH.) INJ 20ML MDV ONE (11:25)
[2021-03-20] MEDS: ALBUMIN 25% 100 ML IV SCH ×2 (17:42→18:07)
[2021-03-20] MEDS: NOREPINEPHRINE 8 MG/250ML KIT 250 ML IV SCH (22:08)
[2021-03-21] VITALS (89 sets, daily range): BP systolic 76–151; BP diastolic 35–86
[2021-03-21] MEDS: MEROPENEM 1GM IVPB 100 ML IV SCH (02:42)
[2021-03-21 04:52] LABS: Hematocrit 20.5 % (36.0-46.0); Hemoglobin 7.1 g/dL (12.2-16.2); Mean Corpuscular Volume 86.9 fL (80.0-100.0)
[2021-03-21 04:53] LABS: Mean Corpuscular Hemoglobin 30.1 pg (28.0-32.0); Mean Corpuscular Hgb Conc. 34.6 g/dL (32.0-36.0); Red Blood Cells 2.36 10^6/uL (4.0-5.20); Red Cell Distribution Width 17.7 % (11.8-14.3); White Blood Cell 9.5 10^3/uL (4.4-10.8)
[2021-03-21 05:09] LABS: Calcium 7.4 mg/dL (8.5-10.1); Potassium 3.8 mmol/L (3.5-5.1)
[2021-03-21 05:12] LABS: BUN/Creatinine Ratio 14.1
[2021-03-21 05:13] LABS: Basophils % (manual) 0 (0.0-2.0); Blast Cells 0; Eosinophils % (manual) 0 (0-7); Promyelocytes % 0; Reactive Lymphocytes 0
[2021-03-21] MEDS: ALBUTEROL SULF HFA 90MCG INH 200DOSE IN PRN ×2 (07:10→22:06)
[2021-03-21] MEDS: BUDESONIDE (INHALATION) 180 MCG IH IN SCH ×2 (07:10→22:06)
[2021-03-21 07:56] LABS: Band Neutrophils % (manual) 6; Lymphocytes % (manual) 13 (10.0-50.0); Metamyelocytes % 2; Monocytes % (manual) 5 (0-12); Myelocytes % 1
[2021-03-21] MEDS: NOREPINEPHRINE 8 MG/250ML KIT 250 ML IV SCH (10:30)
[2021-03-21] MEDS: SODIUM CHLOR 0.9% PF (SALINE LOCK) 10ML VIAL/SYR IV SCH ×2 (13:18→22:30)
[2021-03-21] MEDS: CHOLECALCIFEROL (VITD3) 2,000 UNIT CAP/TAB PO SCH (13:19)
[2021-03-21] MEDS ORDERED: PANTOPRAZOLE 40 MG TAB PO ONE (14:30)
[2021-03-22] VITALS (59 sets, daily range): BP systolic 88–146; BP diastolic 39–96
[2021-03-22 04:45] LABS: White Blood Cell 8.1 10^3/uL (4.4-10.8)
[2021-03-22 04:47] LABS: Hematocrit 24.1 % (36.0-46.0); Hemoglobin 8.3 g/dL (12.2-16.2); Mean Corpuscular Hemoglobin 30.3 pg (28.0-32.0); Mean Corpuscular Hgb Conc. 34.3 g/dL (32.0-36.0); Mean Corpuscular Volume 88.4 fL (80.0-100.0); Red Blood Cells 2.72 10^6/uL (4.0-5.20); Red Cell Distribution Width 16.6 % (11.8-14.3)
[2021-03-22 05:04] LABS: Basophils % (manual) 0 (0.0-2.0); Blast Cells 0; Metamyelocytes % 0; Potassium 3.8 mmol/L (3.5-5.1); Promyelocytes % 0; Reactive Lymphocytes 0
[2021-03-22 05:09] LABS: BUN/Creatinine Ratio 22.2; Calcium 7.5 mg/dL (8.5-10.1)
[2021-03-22 07:06] LABS: Band Neutrophils % (manual) 10; Eosinophils % (manual) 1 (0-7); Lymphocytes % (manual) 13 (10.0-50.0); Monocytes % (manual) 7 (0-12); Myelocytes % 4
[2021-03-22] MEDS: BUDESONIDE (INHALATION) 180 MCG IH IN SCH ×2 (10:00→22:29)
[2021-03-22] MEDS: PANTOPRAZOLE 40 MG TAB PO SCH (10:17)
[2021-03-22] MEDS: CHOLECALCIFEROL (VITD3) 2,000 UNIT CAP/TAB PO SCH (10:17)
[2021-03-22] MEDS: SODIUM CHLOR 0.9% PF (SALINE LOCK) 10ML VIAL/SYR IV SCH ×2 (10:18→22:30)
[2021-03-22] MEDS: NOREPINEPHRINE 8 MG/250ML KIT 250 ML IV SCH (11:10)
[2021-03-22] MEDS: ZOLPIDEM TARTRATE 5 MG TAB PO PRN (22:29)
[2021-03-23] VITALS (16 sets, daily range): BP systolic 95–128; BP diastolic 53–88
[2021-03-23 03:50] LABS: Hematocrit 25.9 % (36.0-46.0); Hemoglobin 8.7 g/dL (12.2-16.2); Mean Corpuscular Hemoglobin 29.6 pg (28.0-32.0); Mean Corpuscular Hgb Conc. 33.5 g/dL (32.0-36.0); Mean Corpuscular Volume 88.4 fL (80.0-100.0); Red Blood Cells 2.93 10^6/uL (4.0-5.20); Red Cell Distribution Width 17.1 % (11.8-14.3); White Blood Cell 7.3 10^3/uL (4.4-10.8)
[2021-03-23 04:05] LABS: Basophils % (manual) 0 (0.0-2.0); Blast Cells 0; Eosinophils % (manual) 0 (0-7); Metamyelocytes % 0; Promyelocytes % 0; Reactive Lymphocytes 0
[2021-03-23 04:07] LABS: Calcium 8.2 mg/dL (8.5-10.1); Potassium 3.8 mmol/L (3.5-5.1)
[2021-03-23 04:10] LABS: BUN/Creatinine Ratio 21.7
[2021-03-23 04:31] LABS: Band Neutrophils % (manual) 3; Lymphocytes % (manual) 24 (10.0-50.0); Monocytes % (manual) 2 (0-12); Myelocytes % 2
[2021-03-23] MEDS: SODIUM CHLOR 0.9% PF (SALINE LOCK) 10ML VIAL/SYR IV SCH ×2 (10:10→21:09)
[2021-03-23] MEDS: PANTOPRAZOLE 40 MG TAB PO SCH (10:13)
[2021-03-23] MEDS: CHOLECALCIFEROL (VITD3) 2,000 UNIT CAP/TAB PO SCH (10:13)
[2021-03-23] MEDS: BUDESONIDE (INHALATION) 180 MCG IH IN SCH (21:02)
[2021-03-24] MEDS: ZOLPIDEM TARTRATE 5 MG TAB PO PRN (00:07)
[2021-03-24 06:30] VITALS: BP 124/88
[2021-03-24 06:49] LABS: Hematocrit 26.5 % (36.0-46.0); Hemoglobin 8.9 g/dL (12.2-16.2); Mean Corpuscular Hemoglobin 29.6 pg (28.0-32.0); Mean Corpuscular Hgb Conc. 33.4 g/dL (32.0-36.0); Mean Corpuscular Volume 88.5 fL (80.0-100.0); Red Blood Cells 2.99 10^6/uL (4.0-5.20); Red Cell Distribution Width 16.8 % (11.8-14.3); White Blood Cell 8.2 10^3/uL (4.4-10.8)
[2021-03-24 06:58] LABS: Band Neutrophils % (manual) 0; Basophils % (manual) 0 (0.0-2.0); Blast Cells 0; Eosinophils % (manual) 0 (0-7); Metamyelocytes % 0; Myelocytes % 0; Promyelocytes % 0; Reactive Lymphocytes 0
[2021-03-24 07:03] LABS: Calcium 8.5 mg/dL (8.5-10.1)
[2021-03-24 07:05] LABS: BUN/Creatinine Ratio 23.8
[2021-03-24] MEDS: BUDESONIDE (INHALATION) 180 MCG IH IN SCH ×2 (08:03→19:29)
[2021-03-24] MEDS: ALBUTEROL SULF HFA 90MCG INH 200DOSE IN PRN ×2 (08:03→19:29)
[2021-03-24 08:26] LABS: Lymphocytes % (manual) 15 (10.0-50.0); Monocytes % (manual) 5 (0-12)
[2021-03-24 09:00] VITALS: BP 120/71
[2021-03-24] MEDS: SODIUM CHLOR 0.9% PF (SALINE LOCK) 10ML VIAL/SYR IV SCH ×2 (10:12→21:11)
[2021-03-24] MEDS: PANTOPRAZOLE 40 MG TAB PO SCH (10:13)
[2021-03-24] MEDS: CHOLECALCIFEROL (VITD3) 2,000 UNIT CAP/TAB PO SCH (10:13)
[2021-03-24 13:00] VITALS: BP 129/54
[2021-03-24 17:00] VITALS: BP 116/71
[2021-03-24 22:00] VITALS: BP 123/76
[2021-03-25 05:00] VITALS: BP 115/68
[2021-03-25 05:17] LABS: Hematocrit 27.3 % (36.0-46.0); Hemoglobin 8.9 g/dL (12.2-16.2); Mean Corpuscular Hemoglobin 29.7 pg (28.0-32.0); Mean Corpuscular Hgb Conc. 32.8 g/dL (32.0-36.0); Mean Corpuscular Volume 90.6 fL (80.0-100.0); Red Blood Cells 3.01 10^6/uL (4.0-5.20); Red Cell Distribution Width 17.3 % (11.8-14.3); White Blood Cell 8.4 10^3/uL (4.4-10.8)
[2021-03-25 05:27] LABS: Basophils % (manual) 0 (0.0-2.0); Blast Cells 0; Metamyelocytes % 0; Promyelocytes % 0; Reactive Lymphocytes 0
[2021-03-25 06:14] LABS: Calcium 8.4 mg/dL (8.5-10.1)
[2021-03-25 06:40] LABS: Band Neutrophils % (manual) 9; Eosinophils % (manual) 2 (0-7); Lymphocytes % (manual) 19 (10.0-50.0); Monocytes % (manual) 8 (0-12); Myelocytes % 1
[2021-03-25] MEDS: ALBUTEROL SULF HFA 90MCG INH 200DOSE IN PRN ×2 (06:41→21:45)
[2021-03-25] MEDS: BUDESONIDE (INHALATION) 180 MCG IH IN SCH ×2 (06:41→21:45)
[2021-03-25 09:00] VITALS: BP 120/76
[2021-03-25] MEDS: CHOLECALCIFEROL (VITD3) 2,000 UNIT CAP/TAB PO SCH (10:14)
[2021-03-25] MEDS: PANTOPRAZOLE 40 MG TAB PO SCH (10:14)
[2021-03-25] MEDS: SODIUM CHLOR 0.9% PF (SALINE LOCK) 10ML VIAL/SYR IV SCH ×2 (10:14→22:00)
[2021-03-25] MEDS ORDERED: SODIUM CHLORIDE 0.9% 1,000 ML IV SCH (10:45)
[2021-03-25 13:00] VITALS: BP 116/66
[2021-03-25] MEDS ORDERED: SODIUM CHLORIDE 0.9% 1,000 ML IV ONE (13:15)
[2021-03-25] MEDS: SODIUM CHLORIDE 0.9% 1,000 ML IV SCH ×2 (14:00→23:30)
[2021-03-25 17:00] VITALS: BP 124/67
[2021-03-25 22:00] VITALS: BP 116/64
[2021-03-26 05:00] VITALS: BP 105/64
[2021-03-26 06:04] LABS: Basophils # (auto) 0.2 10 ^3/uL (0-0.2); Basophils % (auto) 2.5 % (0.0-2.0); Eosinophils # (auto) 0.4 10 ^3/uL (0-0.8); Hematocrit 26.1 % (36.0-46.0); Hemoglobin 8.8 g/dL (12.2-16.2); Lymphocytes # (auto) 0.7 10 ^3/uL (0.4-5.4); Lymphocytes % (auto) 8.9 % (10.0-50.0); Mean Corpuscular Hemoglobin 30.2 pg (28.0-32.0); Mean Corpuscular Hgb Conc. 33.8 g/dL (32.0-36.0); Mean Corpuscular Volume 89.4 fL (80.0-100.0); Monocytes # (auto) 0.5 10 ^3/uL (0-1.3); Monocytes % (auto) 6.6 % (0.0-12.0); Neutrophils # (auto) 5.7 10 ^3/uL (1.6-8.6); Nucleated Red Blood Cells % 0.4 %; Red Blood Cells 2.92 10^6/uL (4.0-5.20); Red Cell Distribution Width 17.8 % (11.8-14.3); White Blood Cell 7.3 10^3/uL (4.4-10.8)
[2021-03-26 06:29] LABS: BUN/Creatinine Ratio 22.2; Calcium 8.2 mg/dL (8.5-10.1); Potassium 3.7 mmol/L (3.5-5.1)
[2021-03-26] MEDS: BUDESONIDE (INHALATION) 180 MCG IH IN SCH ×2 (06:44→22:01)
[2021-03-26] MEDS: ALBUTEROL SULF HFA 90MCG INH 200DOSE IN PRN ×2 (06:44→22:02)
[2021-03-26 08:57] VITALS: BP 111/67
[2021-03-26] MEDS ORDERED: IOHEXOL 300 MG/ML 100ML BOTTLE IJ ONE (09:00)
[2021-03-26] MEDS: SODIUM CHLOR 0.9% PF (SALINE LOCK) 10ML VIAL/SYR IV SCH ×2 (09:10→20:56)
[2021-03-26] MEDS: PANTOPRAZOLE 40 MG TAB PO SCH (09:10)
[2021-03-26] MEDS: CHOLECALCIFEROL (VITD3) 2,000 UNIT CAP/TAB PO SCH (09:11)
[2021-03-26 13:03] VITALS: BP 119/77
[2021-03-26 16:47] VITALS: BP 124/74
[2021-03-26 22:00] VITALS: BP 100/66
[2021-03-27 05:00] VITALS: BP 113/67
[2021-03-27 05:28] LABS: Hematocrit 27.5 % (36.0-46.0); Hemoglobin 9.3 g/dL (12.2-16.2); Mean Corpuscular Hgb Conc. 33.8 g/dL (32.0-36.0); Mean Corpuscular Volume 88.6 fL (80.0-100.0); Red Blood Cells 3.11 10^6/uL (4.0-5.20); Red Cell Distribution Width 17.3 % (11.8-14.3); White Blood Cell 7.6 10^3/uL (4.4-10.8)
[2021-03-27 06:20] LABS: BUN/Creatinine Ratio 24.5; Calcium 8.8 mg/dL (8.5-10.1); Potassium 3.8 mmol/L (3.5-5.1)
[2021-03-27 06:31] LABS: Basophils % (manual) 0 (0.0-2.0); Blast Cells 0; Eosinophils % (manual) 0 (0-7); Metamyelocytes % 0; Myelocytes % 0; Promyelocytes % 0; Reactive Lymphocytes 0
[2021-03-27] MEDS: BUDESONIDE (INHALATION) 180 MCG IH IN SCH ×2 (06:33→21:00)
[2021-03-27] MEDS: ALBUTEROL SULF HFA 90MCG INH 200DOSE IN PRN ×2 (06:33→21:00)
[2021-03-27 07:57] LABS: Band Neutrophils % (manual) 5; Lymphocytes % (manual) 5 (10.0-50.0); Monocytes % (manual) 5 (0-12)
[2021-03-27 08:30] VITALS: BP 121/79
[2021-03-27] MEDS: PANTOPRAZOLE 40 MG TAB PO SCH (09:44)
[2021-03-27] MEDS: CHOLECALCIFEROL (VITD3) 2,000 UNIT CAP/TAB PO SCH (09:44)
[2021-03-27] MEDS: SODIUM CHLOR 0.9% PF (SALINE LOCK) 10ML VIAL/SYR IV SCH ×2 (09:44→22:27)
[2021-03-27 12:16] VITALS: BP 116/60
[2021-03-27 17:02] VITALS: BP 124/70
[2021-03-27 22:13] VITALS: BP 109/77
[2021-03-28] MEDS ORDERED: diphenhdrAMINE HCL 25 MG CAP PO ONE (00:45)
[2021-03-28 05:00] VITALS: BP 110/67
[2021-03-28 06:30] LABS: BUN/Creatinine Ratio 22.2; Calcium 8.5 mg/dL (8.5-10.1); Potassium 3.7 mmol/L (3.5-5.1)
[2021-03-28 07:36] LABS: Basophils # (auto) 0 10 ^3/uL (0-0.2); Basophils % (auto) 0.1 % (0.0-2.0); Eosinophils # (auto) 0.3 10 ^3/uL (0-0.8); Eosinophils % (auto) 4.1 % (0.0-7.0); Hematocrit 27.9 % (36.0-46.0); Hemoglobin 9.2 g/dL (12.2-16.2); Lymphocytes # (auto) 0.8 10 ^3/uL (0.4-5.4); Lymphocytes % (auto) 10.1 % (10.0-50.0); Mean Corpuscular Hemoglobin 29.3 pg (28.0-32.0); Monocytes # (auto) 0.4 10 ^3/uL (0-1.3); Monocytes % (auto) 5.1 % (0.0-12.0); Neutrophils # (auto) 6.3 10 ^3/uL (1.6-8.6); Neutrophils % (auto) 80.6 % (37.0-80.0); Nucleated Red Blood Cells % 0.1 %; Red Blood Cells 3.13 10^6/uL (4.0-5.20); Red Cell Distribution Width 17.5 % (11.8-14.3); White Blood Cell 7.8 10^3/uL (4.4-10.8)
[2021-03-28 08:00] VITALS: BP 124/75
[2021-03-28] MEDS: BUDESONIDE (INHALATION) 180 MCG IH IN SCH ×2 (08:22→19:59)
[2021-03-28] MEDS: ALBUTEROL SULF HFA 90MCG INH 200DOSE IN PRN ×2 (08:22→19:59)
[2021-03-28] MEDS: SODIUM CHLOR 0.9% PF (SALINE LOCK) 10ML VIAL/SYR IV SCH ×2 (09:36→20:34)
[2021-03-28] MEDS: PANTOPRAZOLE 40 MG TAB PO SCH (09:36)
[2021-03-28] MEDS: CHOLECALCIFEROL (VITD3) 2,000 UNIT CAP/TAB PO SCH (09:37)
[2021-03-28 12:07] VITALS: BP 116/68
[2021-03-28 16:48] VITALS: BP 112/85
[2021-03-28 21:58] VITALS: BP 106/57
[2021-03-29 05:00] VITALS: BP 126/72
[2021-03-29 06:08] LABS: Basophils # (auto) 0 10 ^3/uL (0-0.2); Basophils % (auto) 0.2 % (0.0-2.0); Eosinophils # (auto) 0.4 10 ^3/uL (0-0.8); Eosinophils % (auto) 3.8 % (0.0-7.0); Hematocrit 26.1 % (36.0-46.0); Hemoglobin 8.9 g/dL (12.2-16.2); Lymphocytes # (auto) 0.8 10 ^3/uL (0.4-5.4); Lymphocytes % (auto) 7.8 % (10.0-50.0); Mean Corpuscular Hemoglobin 30.1 pg (28.0-32.0); Mean Corpuscular Volume 88.5 fL (80.0-100.0); Monocytes # (auto) 0.5 10 ^3/uL (0-1.3); Monocytes % (auto) 5.1 % (0.0-12.0); Neutrophils % (auto) 83.1 % (37.0-80.0); Nucleated Red Blood Cells % 0.1 %; Red Blood Cells 2.95 10^6/uL (4.0-5.20); Red Cell Distribution Width 17.5 % (11.8-14.3); White Blood Cell 9.7 10^3/uL (4.4-10.8)
[2021-03-29] MEDS: BUDESONIDE (INHALATION) 180 MCG IH IN SCH ×2 (06:23→19:22)
[2021-03-29 06:27] LABS: Potassium 3.7 mmol/L (3.5-5.1)
[2021-03-29 06:31] LABS: BUN/Creatinine Ratio 20.5; Calcium 8.4 mg/dL (8.5-10.1)
[2021-03-29 09:00] VITALS: BP 126/68
[2021-03-29] MEDS: PANTOPRAZOLE 40 MG TAB PO SCH (10:21)
[2021-03-29] MEDS: CHOLECALCIFEROL (VITD3) 2,000 UNIT CAP/TAB PO SCH (10:22)
[2021-03-29] MEDS: SODIUM CHLOR 0.9% PF (SALINE LOCK) 10ML VIAL/SYR IV SCH (10:22)
[2021-03-29 13:00] VITALS: BP 133/76
[2021-03-29 16:56] VITALS: BP 116/69
== END 2021-03-29 21:31 | disposition home health service (06) | DRG 137 ==
LOC: EDBD 01:32 → ER 01:35 → TELE 10:46 → TELE-EAST 03-11 22:13 → ICU WEST 03-17 11:00 → TELE-EAST 03-23 06:31
PROVIDERS: ADMIT Internal Medicine; ATTEND Internal Medicine Pulmonary Disease
PROC: XW13325 Transfusion of Convalescent Plasma (Nonautologous) into Peripheral Vein, Percutaneous Approach, New Technology Group 5 (ICD-10-PCS; principal; 2021-03-10)
PROC: XW033E5 Introduction of Remdesivir Anti-infective into Peripheral Vein, Percutaneous Approach, New Technology Group 5 (ICD-10-PCS; 2021-03-10)
PROC: 05HC33Z Insertion of Infusion Device into Left Basilic Vein, Percutaneous Approach (ICD-10-PCS; 2021-03-16)
PROC: B54NZZA Ultrasonography of Left Upper Extremity Veins, Guidance (ICD-10-PCS; 2021-03-16)
PROC: 30233N1 Transfusion of Nonautologous Red Blood Cells into Peripheral Vein, Percutaneous Approach (ICD-10-PCS; 2021-03-16)
PROC: 06HY33Z Insertion of Infusion Device into Lower Vein, Percutaneous Approach (ICD-10-PCS; 2021-03-18)
PROC: 02HV33Z Insertion of Infusion Device into Superior Vena Cava, Percutaneous Approach (ICD-10-PCS; 2021-03-19)
PROC: 06H03DZ Insertion of Intraluminal Device into Inferior Vena Cava, Percutaneous Approach (ICD-10-PCS; 2021-03-20)
PROC: 0T9130Z Drainage of Left Kidney with Drainage Device, Percutaneous Approach (ICD-10-PCS; 2021-03-20)
PROC: 0T9030Z Drainage of Right Kidney with Drainage Device, Percutaneous Approach (ICD-10-PCS; 2021-03-20)
PROC: BT42ZZZ Ultrasonography of Left Kidney (ICD-10-PCS; 2021-03-20)
PROC: BT41ZZZ Ultrasonography of Right Kidney (ICD-10-PCS; 2021-03-20)
PROC: BT13YZZ Fluoroscopy of Bilateral Kidneys using Other Contrast (ICD-10-PCS; 2021-03-20)
PROC: BT10YZZ Fluoroscopy of Bladder using Other Contrast (ICD-10-PCS; 2021-03-20)
PROC: B519YZZ Fluoroscopy of Inferior Vena Cava using Other Contrast (ICD-10-PCS; 2021-03-20)
DX: U07.1 COVID-19 (principal); I26.99 Other pulmonary embolism without acute cor pulmonale; J12.82 Pneumonia due to coronavirus disease 2019; J96.01 Acute respiratory failure with hypoxia; R57.1 Hypovolemic shock; E87.1 Hypo-osmolality and hyponatremia; D62 Acute posthemorrhagic anemia; D89.839 Cytokine release syndrome, grade unspecified; I27.20 Pulmonary hypertension, unspecified; E87.6 Hypokalemia; E66.01 Morbid (severe) obesity due to excess calories; J45.909 Unspecified asthma, uncomplicated; D64.9 Anemia, unspecified; E87.2 Acidosis; N17.9 Acute kidney failure, unspecified; Z99.2 Dependence on renal dialysis; Z68.42 Body mass index [BMI] 45.0-49.9, adult; N94.89 Other specified conditions associated with female genital organs and menstrual cycle
CPT/HCPCS: 36415; 36569; 36600; 37191; 50430; 71045; 71275; 72192; 72194; 74018; 74176; 76775; 76856; 76937; 76942; 80048; 80053; 80074; 80202; 81001; 82270; 82607; 82728; 82805; 82962; 83036; 83540; 83550; 83605; 83615; 83735; 83880; 84100; 84484; 84702; 85007; 85014; 85018; 85025; 85027; 85045; 85379; 85610; 85730; 86141; 86850; 86900; 86901; 86920; 87040; 87070; 87086; 87205; 87426; 90935; 93005; 93306; 93970; 93971; 94640; 97110; 97116; 97530; 99152; C1729; C9113; G0378; J0696; J1100; J1642; J2185; J2250; J2405; P9047

== ENCOUNTER 2021-05-29 10:53 | Emergency (ER) | payer OTHER ==
[~2021-05-29] VITALS: Ht 162.6 cm; Wt 114.8 kg
[~2021-05-29 10:53] MED LIST: ALBU0.084 NEB; ALBUAER3 IN
[2021-05-29 14:54] VITALS: BP 135/84
== END 2021-05-29 14:55 | disposition short-term general hospital (02) ==
LOC: ER 10:53
DX: T83.022A Displacement of nephrostomy catheter, initial encounter (principal); J45.909 Unspecified asthma, uncomplicated; Z87.891 Personal history of nicotine dependence; Z79.899 Other long term (current) drug therapy
CPT/HCPCS: 74176

== ENCOUNTER 2022-10-25 09:20 | Emergency (ER) | payer OTHER ==
[~2022-10-25] VITALS: Ht 160 cm; Wt 138.0 kg
[2022-10-25 10:04] LABS: Eosinophils # (auto) 0.1 10 ^3/uL (0-0.8); Hemoglobin 14.1 g/dL (12.2-16.2); Monocytes # (auto) 0.3 10 ^3/uL (0-1.3); Nucleated Red Blood Cells % 0.1 %
[2022-10-25 10:05] LABS: Basophils # (auto) 0 10 ^3/uL (0-0.2); Basophils % (auto) 0.6 % (0.0-2.0); Eosinophils % (auto) 2.5 % (0.0-7.0); Hematocrit 42.6 % (36.0-46.0); Lymphocytes # (auto) 0.7 10 ^3/uL (0.4-5.4); Lymphocytes % (auto) 11.4 % (10.0-50.0); Mean Corpuscular Volume 81.8 fL (80.0-100.0); Neutrophils # (auto) 4.7 10 ^3/uL (1.6-8.6); Neutrophils % (auto) 80.5 % (37.0-80.0); Red Cell Distribution Width 15.5 % (11.8-14.3); White Blood Cell 5.8 10^3/uL (4.4-10.8)
[2022-10-25] MEDS ORDERED: HYDROmorphone HCL 2 MG/ML VL/or syr IV ONE (10:15)
[2022-10-25] MEDS ORDERED: ONDANSETRON HCL 4 MG/2 ML VIAL IV ONE (10:15)
[2022-10-25] MEDS ORDERED: SODIUM CHLORIDE 0.9% 1,000 ML IV ONE (10:15)
[2022-10-25 10:17] LABS: Albumin 3.3 g/dL (3.4-5.0); Calcium 8.8 mg/dL (8.5-10.1); Potassium 3.7 mmol/L (3.5-5.1)
[2022-10-25 10:22] LABS: BUN/Creatinine Ratio 14.9 (10.0-20.0); Bilirubin, Total 2.5 mg/dL (0.2-1.0); Total Protein 7.8 g/dL (6.4-8.2)
[2022-10-25 11:05] LABS: INR 1.03 (0.9-1.15)
[2022-10-25 11:22] LABS: Urine Bacteria FEW /hpf (None Seen); Urine Blood Negative /uL (Negative); Urine Specific Gravity 1.018 (1.001-1.035); Urine WBC 8 /hpf (0 - 5)
[2022-10-25] MEDS ORDERED: PIPERACILLIN-TAZOB 3.375GM 100 ML IV ONE (13:30)
[2022-10-25 18:02] VITALS: BP 149/96
== END 2022-10-26 00:40 | disposition short-term general hospital (02) ==
LOC: ER 09:20
DX: K81.9 Cholecystitis, unspecified (principal); K85.90 Acute pancreatitis without necrosis or infection, unspecified; J45.909 Unspecified asthma, uncomplicated; Z20.822 Contact with and (suspected) exposure to COVID-19; Z87.891 Personal history of nicotine dependence; Z98.890 Other specified postprocedural states
CPT/HCPCS: 36415; 74177; 80053; 81001; 83690; 85025; 85610; 87040; 87426; 96361; 96365; 96366; 96375; 99285; J2405; J2543; J7030

== ENCOUNTER 2024-12-26 | Emergency (ER) | payer OTHER ==
[~2024-12-26] VITALS: Ht 161.3 cm; Wt 141.0 kg
[2024-12-26] MEDS: cefTRIAXone 1GM/50ML D5W 50 ML IV ONE (01:56)
[2024-12-26] MEDS: VANCOMYCIN 1GM/200ML PM 200 ML IV ONE (02:11)
[2024-12-26 02:34] LABS: Eosinophils # (auto) 0.2 10 ^3/uL (0-0.8); Neutrophils # (auto) 10.7 10 ^3/uL (1.6-8.6); Nucleated Red Blood Cells % 0.2 %; Red Blood Cells 5.07 10^6/uL (4.0-5.20)
[2024-12-26 02:39] LABS: Basophils # (auto) 0.3 10 ^3/uL (0-0.2); Chloride 104 mmol/L (98-107); Eosinophils % (auto) 1.5 % (0.0-7.0); Hematocrit 40.5 % (36.0-46.0); Hemoglobin 13.5 g/dL (12.2-16.2); Lymphocytes # (auto) 1.9 10 ^3/uL (0.4-5.4); Mean Corpuscular Hemoglobin 26.6 pg (28.0-32.0); Mean Corpuscular Hgb Conc. 33.2 g/dL (32.0-36.0); Monocytes # (auto) 0.7 10 ^3/uL (0-1.3); Monocytes % (auto) 5.3 % (0.0-12.0); Neutrophils % (auto) 77.2 % (37.0-80.0); Platelet Count (auto) 209 10^3/uL (140-450); Red Cell Distribution Width 17.9 % (11.8-14.3); Sodium 139 mmol/L (136-145); White Blood Cell 13.8 10^3/uL (4.4-10.8)
[2024-12-26 02:40] LABS: Anion Gap 8 (5-15); Carbon Dioxide 27 mmol/L (20-31)
[2024-12-26 02:41] LABS: Calcium 9.6 mg/dL (8.7-10.4)
[2024-12-26 02:45] LABS: BUN/Creatinine Ratio 17.6 (10.0-20.0); Blood Urea Nitrogen 15 mg/dL (9-23); Glucose 95 mg/dL (74-106)
--- NOTE | 2024-12-26 02:54 | ED.PDOC ---
History of Present Illness(SKN HPI Comments 59-year-old female presents with daughter for wound check. Patient endorses on having an unhealing scab wound to her left outer ankle for over 1 year admits multiple antibiotic medication placement (finish loss antibiotic 3-4 months ago). She states, recently, developing any scab and having pain onset after he fell off on its own, recently. Only medical history of asthma. Denies having any wound discharge or bleeding, decreased right lower extremity range of motion, numbness, tingling, fever, chills, or further associated symptoms. Chief Complaint: Wound Check Time Seen by MD: 00:53 Primary Care Provider: [facility]IN[facility] History of Present Illness: Nurses Notes, Medications, Allergies Allergies: Coded Allergies: NO KNOWN ALLERGIES (Unverified , 02/13/12) Home Meds Active Scripts Sulfamethoxazole W/Trimethopri (Bactrim Ds Tablet) 1 Tab Tb, 1 TAB PO BID for 10 Days, #20 TAB Prov:ARACELIS KANG MD 12/26/24 Reported Medications Albuterol Sulfate (Albuterol Sulfate) 0.083 % Neb, 1 VIAL NEB PRN, #50 VIAL 03/12/21 Albuterol Sulfate (VENTOLIN MDI) 90 Mcg Ih, 90 MCG IN PRN, INH 03/12/21 Information Source: Patient Mode of Arrival: Ambulatory Severity: Moderate Timing: Months Duration: Since onset Prehospital treatment: Other (See HPI) Review of Systems: REVIEW OF SYSTEMS: No fever, no chills, or fatigue HEENT: No sore throat, no earache, no congestion, no neck pain. Cardiac: No chest pain. No palpitations. Lungs: No shortness of breath, no cough. GI: No nausea, no vomiting, no diarrhea, no constipation, no abdominal pain : No dysuria, frequency, or urgency. No hematuria. Musculoskeletal: No joint pain , no joint swelling, no extremity edema. Skin: Nonhealing scalp wound to left ankle. No rash, no itching. Neuro: No headache, no dizziness, no weakness Vital Signs Vital Signs Date Time Temp Pulse Resp B/P (MAP) Pulse Ox O2 Delivery O2 Flow Rate FiO2 12/26/24 04:35 98.3 71 16 137/73 (94) 97 98.3 12/26/24 01:55 Room Air* 0 21 Physical Exam General: Awake, alert and oriented. No acute distress. Skin: Skin in warm, dry and intact. Appropriate color for ethnicity. HEENT: The head is normocephalic and atraumatic. Conjunctivae are clear without exudates or hemorrhage. Sclera is non-icteric. EOM are intact. No signs of nystagmus. Eyelids are normal in appearance without swelling or lesions. Oral mucosa is pink and moist Neck: The neck is supple with normal range of motion. No JVD. Cardiac: Heart rate and rhythm are normal. No murmurs, gallops, or rubs are auscultated. Respiratory: No signs of respiratory distress. Lung sounds are clear in all lobes bilaterally without rales, rhonchi, or wheezes. Abdominal: Abdomen is soft, non-tender without distention, guarding or rigidity. Bowel sounds are present and normoactive in all four quadrants. Extremities: Nonhealing ulcer scab wound to left ankle, with mild erythema and warmth. Otherwise, remaining upper and lower extremities are atraumatic in kelly earance without deformity or edema. Neurological: The patient is awake, alert and oriented to person, place, and time with normal speech. Speech is clear. There is no facial asymmetry. Psychiatric: Appropriate mood and affect. Good judgement and insight. 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 Was a procedure done?: No Differential Diagnosis (INTG) Differential Diagnosis: Cellulitis Differential Diagnosis: Abscess, Atopic dermatitis, Contact Dermatitis, Osteomyelitis, Viral exanthema, Other (nonhealing wound) X-Ray, Labs, Meds, VS Vital Signs Date Time Temp Pulse Resp B/P (MAP) Pulse Ox O2 Delivery O2 Flow Rate FiO2 12/26/24 04:35 98.3 71 16 137/73 (94) 97 98.3 12/26/24 03:37 79 12 137/85 12/26/24 03:07 73 16 151/88 12/26/24 02:08 98.0 65 20 143/67 (92) 97 98.0 12/26/24 01:55 Room Air* 0 21 12/26/24 00:17 97.0 89 18 186/84 (118) 98 97.0 Lab Test 12/26/24 01:30 Range/Units White Blood Count 13.8 H 4.4-10.8 10^3/uL Red Blood Count 5.07 4.0-5.20 10^6/uL Hemoglobin 13.5 12.2-16.2 g/dL Hematocrit 40.5 36.0-46.0 % Mean Corpuscular Volume 80.0 80.0-100.0 fL Mean Corpuscular Hemoglobin 26.6 L 28.0-32.0 pg Mean Corpuscular Hemoglobin Concent 33.2 32.0-36.0 g/dL Red Cell Distribution Width 17.9 H 11.8-14.3 % Platelet Count 209 140-450 10^3/uL Mean Platelet Volume 8.5 6.9-10.8 fL Neutrophils (%) (Auto) 77.2 37.0-80.0 % Lymphocytes (%) (Auto) 14.0 10.0-50.0 % Monocytes (%) (Auto) 5.3 0.0-12.0 % Eosinophils (%) (Auto) 1.5 0.0-7.0 % Basophils (%) (Auto) 2.0 0.0-2.0 % Neutrophils # (Auto) 10.7 H 1.6-8.6 10 ^3/uL Lymphocytes # (Auto) 1.9 0.4-5.4 10 ^3/uL Monocytes # (Auto) 0.7 0-1.3 10 ^3/uL Eosinophils # (Auto) 0.2 0-0.8 10 ^3/uL Basophils # (Auto) 0.3 H 0-0.2 10 ^3/uL Nucleated Red Blood Cells 0.2 % Sodium Level 139 136-145 mmol/L Potassium Level 4.0 3.5-5.1 mmol/L Chloride Level 104 98-107 mmol/L Carbon Dioxide Level 27 20-31 mmol/L Anion Gap 8 5-15 Blood Urea Nitrogen 15 9-23 mg/dL Creatinine 0.85 0.550-1.02 mg/dL Glomerular Filtration Rate Calc 80 >90 mL/min BUN/Creatinine Ratio 17.6 10.0-20.0 Serum Glucose 95 74-106 mg/dL Calcium Level 9.6 8.7-10.4 mg/dL Current Medications Medications (Trade) Dose Ordered Sig/Marychuy Route Start Time Stop Time Status Last Admin Ceftriaxone Sodium 50 ml @ 100 mls/hr ONCE ONCE IV 12/26/24 01:30 12/26/24 01:59 DC 12/26/24 01:56 Vancomycin HCl 200 ml @ 200 mls/hr ONCE ONCE IV 12/26/24 01:30 12/26/24 02:29 DC 12/26/24 02:11 Morphine Sulfate 2 mg ONCE ONCE IV 12/26/24 03:00 12/26/24 03:01 DC 12/26/24 03:07 Ondansetron HCl (Zofran) 4 mg ONCE ONCE IV 12/26/24 03:00 12/26/24 03:01 DC 12/26/24 03:07 [place] [id number] Ph: [phone] DIAGNOSTIC IMAGING Diagnostic Imaging Report : [id number] Signed PATIENT: MAHI MILLS ACCT: [id number] UNIT: [id number] : 1965 LOC: ER ROOM / BED: / AGE / SEX: 59 / F ADM STATUS: REG ER SERVICE 1 ORDERING PHYSICIAN: ARACELIS KANG MD PROCEDURE(s): LTBFB - L TIB FIB XRAY REASON: Rule out osteomyelitis light left lateral lower ORDER NUMBER(s): [id number], ACCESSION NUMBER(s): [id number] CLINICAL INDICATION: Rule out osteomyelitis light left lateral lower TECHNIQUE: XY L TIB FIB XRAY Comparison: None FINDINGS/IMPRESSION: : There is no evidence of acute fracture or dislocation. Mild diffuse soft-tissue swelling. ATED BY: FERMIN MONTOYA MD DICTATED DATE/TIME: 12/26/24440 SIGNED BY: FERMIN MONTOYA MD SIGNED DATE/TIME: 12/26/24440 CC: Time of 1ST Reevaluation: 01:23 Reevaluation 1ST: Unchanged Patient Education/Counseling: Need For Follow Up Family Education/Counseling: Need For Follow Up SEPSIS Sepsis Screen Date sepsis recognized/suspect: Dec 26, 2024 Time Sepsis recognized/suspect: 0010 Recent Procedure: No On Antibiotic Therapy: No Respiratory Rate >20: No Heart Rate >90: No Temp<36 C (96.8 F) or >38.3 C: No SBP <90 or MAP <65 mmHG: No New Acute Mental Status Change: No Is the patient on CPAP, BIPAP,: No Physician Orders Wound Culture W/ Gs (12/26/24 01:17) Blood Culture (12/26/24 01:17) L Tib Fib Xray (12/26/24 02:52) Vital Signs Date Time Temp Pulse Resp B/P (MAP) Pulse Ox O2 Delivery O2 Flow Rate FiO2 12/26/24 04:35 98.3 71 16 137/73 (94) 97 98.3 12/26/24 03:37 79 12 137/85 12/26/24 03:07 73 16 151/88 12/26/24 02:08 98.0 65 20 143/67 (92) 97 98.0 12/26/24 01:55 Room Air* 0 21 12/26/24 00:17 97.0 89 18 186/84 (118) 98 97.0 Laboratory Tests Test 12/26/24 01:30 White Blood Count 13.8 10^3/uL (4.4-10.8) H Medications Medications Dose Ordered Sig/Marychuy Route Start Time Stop Time Status Last Admin Dose Admin Ceftriaxone Sodium 50 ml @ 100 mls/hr ONCE ONCE IV 12/26/24 01:30 12/26/24 01:59 DC 12/26/24 01:56 Morphine Sulfate 2 mg ONCE ONCE IV 12/26/24 03:00 12/26/24 03:01 DC 12/26/24 03:07 Ondansetron HCl 4 mg ONCE ONCE IV 12/26/24 03:00 12/26/24 03:01 DC 12/26/24 03:07 Vancomycin HCl 200 ml @ 200 mls/hr ONCE ONCE IV 12/26/24 01:30 12/26/24 02:29 DC 12/26/24 02:11 Departure 1 Departure Time of Disposition: 02:54 Impression: Primary Impression: Cellulitis of left leg Disposition: ADMITTED INPATIENT Condition: Stable Additional Instructions: ED DISCHARGE INSTRUCTIONS Instructions: Please read all instructions provided in this packet carefully. Although you have been discharged from the Emergency Department, this does not mean that you have a "clean bill of health". []No definitive diagnosis for your symptoms has been made today. It is possible that you are in the process of developing a serious illness. This is why you must return to the ED without fail if any new or worsening symptoms (especially if your symptoms include chest pain, trouble breathing, abdominal pain, fever, headache, confusion, trouble seeing, or trouble walking) It is also very important that you follow up with the [facility] urgent care tomorrow. If you are unable to get an appointment, return to the ED for re-evaluation. Cellulitis: Care Instructions Your Care Instructions Cellulitis is a skin infection caused by bacteria, most often strep or staph. It often occurs after a break in the skin from a scrape, cut, bite, or puncture, or after a rash. Cellulitis may be treated without doing tests to find out what caused it. But your doctor may do tests, if needed, to look for a specific bacteria, like methicillin-resistant Staphylococcus aureus (MRSA). The doctor has checked you carefully, but problems can develop later. If you notice any problems or new symptoms, get medical treatment right away. Follow-up care is a haddad part of your treatment and safety. Be sure to make and go to all appointments, and call your doctor if you are having problems. It's also a good idea to know your test results and keep a list of the medicines you take. How can you care for yourself at home? Take your antibiotics as directed. Do not stop taking them just because you feel better. You need to take the full course of antibiotics. Prop up the infected area on pillows to reduce pain and swelling. Try to keep the area above the level of your heart as often as you can. If your doctor told you how to care for your wound, follow your doctor's instructions. If you did not get instructions, follow this general advice: Wash the wound with clean water 2 times a day. Don't use hydrogen peroxide or alcohol, which can slow healing. You may cover the wound with a thin layer of petroleum jelly, such as Vaseline, and a nonstick bandage. Apply more petroleum jelly and replace the bandage as needed. Be safe with medicines. Take pain medicines exactly as directed. If the doctor gave you a prescription medicine for pain, take it as prescribed. If you are not taking a prescription pain medicine, ask your doctor if you can take an [id number] medicine. To prevent cellulitis in the future Try to prevent cuts, scrapes, or other injuries to your skin. Cellulitis most often occurs where there is a break in the skin. If you get a scrape, cut, mild burn, or bite, wash the wound with clean water as soon as you can to help avoid infection. Don't use hydrogen peroxide or alcohol, which can slow healing. If you have swelling in your legs (edema), support stockings and good skin care may help prevent leg sores and cellulitis. Take care of your feet, especially if you have diabetes or other conditions that increase the risk of infection. Wear shoes and socks. Do not go barefoot. If you have athlete's foot or other skin problems on your feet, talk to your doctor about how to treat them. When should you call for help? Call your doctor now or seek immediate medical care if: You have signs that your infection is getting worse, such as: Increased pain, swelling, warmth, or redness. Red streaks leading from the area. Pus draining from the area. A fever. You get a rash. Watch closely for changes in your health, and be sure to contact your doctor if: You do not get better as expected. Credits for Cellulitis: Care Instructions Current as of: June 08, 2024 Author: [employer] Clinical Review Board All [employer] education is reviewed by a team that includes physicians, nurses, advanced practitioners, registered dieticians, and other healthcare professionals. e-Prescriptions Sulfamethoxazole W/Trimethopri (Bactrim Ds Tablet) 1 Tab Tb 1 TAB PO BID for 10 Days, #20 TAB Prov: ARACELIS KANG MD 12/26/24 Comments Discussed with Called me request for admission. He is declining admission at this time. Recommendations discharge patient home with 10 day course of Bactrim DS. Advised patient to follow up at [facility] urgent care tomorrow. Extensive evaluation was performed in attempt to identify or rule out: (See differential diagnosis section) The following tests were ordered, and results were reviewed by me and discussed with patient: (See diagnostic results section) The following test were independently interpreted by me: N/A I reviewed and agreed with the following test results read by other providers: Tibia/fibula x-ray I reviewed the following notes from the pt's past medical encounters: October 25, 2022 encounter for abdominal pain Additional information was gathered from interviewing the following independent historians: N/A Discussion of management or test interpretation with external physician/other community [facility] care support representative: N/A Addressed [ ]one or more chronic illnesses with severe exacerbation, progression, or side effects of treatment: [ ]an acute or chronic illness that poses a threat to life or bodily function: [ ] Decision regarding hospitalization or escalation of hospital level of care: Risk and benefits of admission for further treatment of patient's condition was considered. Due to patient's current clinical condition, high risk of decline and poor outcome if discharged and need for further inpatient management and monitoring, patient will be admitted to the hospital. Drug therapy requiring intensive monitoring for toxicity: N/A Parenteral controlled substances: N/A Decision regarding elective major surgery with identified patient or procedure risk factors: N/A Decision regarding emergency major surgery: N/A Decision not to resuscitate or to de-escalate care because of poor prognosis: N/A Diagnosis or treatment significantly limited by social determinants of health: N/A Decision regarding hospitalization or escalation of hospital level of care: Risks and benefits of admission for further treatment of patient's condition was considered however due to patient's stable condition patient will be discharged to follow up closely or return to care for worsening of condition or inability to follow up. Critical Care Note Critical Care Time?: No Stability Stability form required: No Heart Score Heart Score: Heart Score Response (Comments) Value History N/A 0 EKG N/A 0 Age N/A 0 Risk Factors N/A 0 Troponin N/A 0 Total 0 I personally scribed for ARACELIS KANG MD ([email or web address]) on 12/26/24 at 04:55. Olga ctronically submitted by Juventino Aguilar ([email or web address]). ARACELIS KANG MD Dec 26, 2024 02:54
[2024-12-26] MEDS: ONDANSETRON HCL 4 MG/2 ML VIAL IV ONE (03:07)
[2024-12-26] MEDS: MORPHINE SULFATE 4 MG/ML SYR/VIAL IV ONE (03:07)
[2024-12-26] MEDS ORDERED: BACDST PO (04:19)
[2024-12-26 04:35] VITALS: BP 137/73; PULSE 71; RESP 16; TEMP 98.3; O2SAT 97
--- NOTE | 2024-12-26 04:43 | DVH ---
CLINICAL INDICATION: Rule out osteomyelitis light left lateral lower TECHNIQUE: XY L TIB FIB XRAY Comparison: None FINDINGS/IMPRESSION: : There is no evidence of acute fracture or dislocation. Mild diffuse soft-tissue swelling.
== END 2024-12-26 04:20 | disposition home or self-care (01) ==
LOC: ER
DX: L03.116 Cellulitis of left lower limb (principal); J45.909 Unspecified asthma, uncomplicated; Z48.00 Encounter for change or removal of nonsurgical wound dressing; Z79.899 Other long term (current) drug therapy; Z98.890 Other specified postprocedural states
CPT/HCPCS: 36415; 73590; 80048; 85025; 87040; 96365; 96368; 96375; 99285; J0696; J2270; J2405; J3370